=== PATIENT | male | born 1945 | race Caucasian/White ===

== ENCOUNTER 2017-11-03 09:05 | Emergency (ER) | payer OTHER, MEDICARE ==
[2017-11-03] MEDS: EPINEPHrine 1:10,000 1 MG/10 ML Syringe IVPUSH ONE ×4 (09:12→09:28)
[2017-11-03] MEDS ORDERED: EPINEPHrine 1 MG/ML 30 ML MDV IVPUSH ONE ×3 (09:16→09:28)
--- NOTE | 2017-11-03 10:00 | EDM.PDOC ---
ED HPI GENERAL MEDICAL PROBLEM - General Chief Complaint: Cardiovascular Problem Stated Complaint: CARDIAC ARREST Time Seen by Provider: 11/03/17 09:05 Source of Information: Reports: EMS, EMS Notes Reviewed History Limitations: Reports: Altered Mental Status, Physical Impairment, Other (GCS 3) - History of Present Illness INITIAL COMMENTS - FREE TEXT/NARRATIVE: Olman Vigil arrives by EMS in full Code Blue, with laryngeal airway bagged with 100% 02 and [place] Mechanical CPR, and IO in R leg. He had a witnessed out of hospital arrest at 0838 in the presence of EMS who responded to his call of precordial chest pain. He was quickley intubated, CPR, IO with 3 doses of Epi 10 :10,000 administered enroute to ED. Upon arrival, GCS 3 with pupils equal, 3 mm , and sluggish, apneic respirations, bradycardia with thready carotid pulse. CPR continued, with JOHNATHAN per [employer], and 4 additional doses of Epi 10:10,000 administered per IO. Pulses were not obtainable after an additional 10 minutes, and VR slowly diminished to 15 bpm. PEA was determined, and CPR was stopped at 0929. Pupils were fixed at 3 mm, and ocular venous stasis was detected fundiscopically. Patient was pronounced at 0931. Family arrived shortly after demise,and case was discussed with sister. No post mortem anticipated. ED ROS GENERAL - Review of Systems Review Of Systems: Unable To Obtain ED EXAM, GENERAL - Physical Exam Exam: See Below Exam Limited By: Physical Impairment General Appearance: Obtunded Eye Exam: Bilateral Eye: Abnormal EOM, Abnormal Pupil Ears: Normal External Exam Nose: Normal Inspection Throat/Mouth: Normal Inspection Head: Normocephalic Neck: Normal Inspection, Supple Respiratory/Chest: Decreased Breath Sounds, Other (apneic respirations on admission) Cardiovascular: No JVD, Bradycardia Peripheral Pulses: 0: Brachial (L), Brachial (R), Radial (L), Radial (R), Femoral (L), Femoral (R), Popliteal (L), Popliteal (R), Posterior Tibial (L), Posterior Tibial (R), Dorsalis Pedis (L), Dorsalis Pedis (R), 1+: Carotid (L), Carotid (R) GI/Abdominal: No Distention, No Mass (Male) Exam: No Hernia, Normal Inspection Rectal (Males) Exam: Deferred Back Exam: Normal Inspection Extremities: Mottled Neurological: Unresponsive Skin Exam: Mottled, Pallor Lymphatic: No Adenopathy Course - Vital Signs Text/Narrative:: Patient pronounced at 09. - Orders/Labs/Meds Orders: Active Orders 24 hr Category Date Time Status COMPREHENSIVE METABOLIC PN,CMP [CHEM] Routine Lab 11/03/17 09:35 Received TROPONIN I [CHEM] Stat Lab 11/03/17 09:26 Received Labs: Laboratory Tests 11/03/17 11/03/17 Range/Units 09:26 09:35 WBC 10.0 (4.5-12.0) X10-3/uL RBC 4.27 L (4.30-5.75) x10(6)uL Hgb 12.8 (11.5-15.5) g/dL Hct 38.0 (30.0-51.3) % MCV 89.0 (80-96) fL MCH 29.9 (27.7-33.6) pg MCHC 33.6 (32.2-35.4) g/dL RDW 12.6 (11.5-15.5) % Plt Count 230 (125-369) X10(3)uL MPV 9.2 (7.4-10.4) fL Add Manual Diff Yes Neutrophils % (Manual) 39 L (46-82) % Band Neutrophils % 1 (0-6) % Lymphocytes % (Manual) 51 H (13-37) % Monocytes % (Manual) 7 (4-12) % Eosinophils % (Manual) 2 (0-5) % Clumped Platelets Few POC VBG pH 7.13 L (7.31-7.41) POC VBG pCO2 42.7 (41-51) mmHG POC VBG HCO3 14.1 L (23-28) mmol/L POC VBG Total CO2 15 L (24-29) mmol/L POC VBG Base Excess -15 L (-2-3) mmol/L Departure - Departure Time of Disposition: : Disposition: 20 Preliminary Cause of *Q: Cardiac Arrest Condition: Critical Clinical Impression: ACS (acute coronary syndrome) Forms: ED Department Discharge - Problem List & Annotations (1) ACS (acute coronary syndrome) SNOMED Code(s): 057139414 Code(s): I24.9 - ACUTE ISCHEMIC HEART DISEASE, UNSPECIFIED Status: Acute Annotation/Comment:: Case discussed with sister. No post mortem anticipated. - Problem List Review Problem List Initiated/Reviewed/Updated: Yes - My Orders Last 24 Hours: My Active Orders 11/03/17 09:26 TROPONIN I [CHEM] Stat 11/03/17 09:35 COMPREHENSIVE METABOLIC PN,CMP [CHEM] Routine - Assessment/Plan Last 24 Hours: My Active Orders 11/03/17 09:26 TROPONIN I [CHEM] Stat 11/03/17 09:35 COMPREHENSIVE METABOLIC PN,CMP [CHEM] Routine Plan: Per Floor Director and family.
== END 2017-11-03 09:31 | disposition expired ==
LOC: FB.ED 09:05
DX: I24.9 Acute ischemic heart disease, unspecified (principal)
CPT/HCPCS: 31500; 36415; 80053; 82803; 84484; 85025; 92950; 96374; 96375; 99285; J0171